=== PATIENT | male | born 1985 | race American Indian/Alaskan Native ===

== ENCOUNTER 2016-10-06 20:32 | Emergency (ER) | payer MEDICARE ==
[2016-10-06] MEDS ORDERED: TYLENOL PO ONE (20:54)
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
[2016-10-07] MEDS ORDERED: MOTRIN PO ONE (01:00)
[2016-10-07] MEDS ORDERED: BOOSTRIX IM ONE (01:00)
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
--- NOTE | 2016-10-07 02:14 | Cat Scan Report ---
FINAL REPORT PROCEDURE: CT LOWER EXTREMITY RT WO CON TECHNIQUE: Computerized axial tomography of the RIGHT ankle was performed without contrast. HISTORY: fractured ankle COMPARISON: No prior studies are available for comparison. FINDINGS: Bony structures including marrow spaces: There are cortical fractures of the posterior aspect of the distal tibia, the distal fibula and the medial malleolus. The talus and calcaneus are intact. Neurovascular structures: Normal. Soft tissues: There is medial soft tissue swelling. There is no mass or hematoma. Joint space: Normal. IMPRESSION: There are cortical fractures of the posterior aspect of the distal tibia, the distal fibula and the medial malleolus. There is medial soft tissue swelling. There is no mass or hematoma.
[2016-10-07 05:06] VITALS: BP 116/92
== END 2016-10-07 05:06 | disposition home or self-care (01) ==
LOC: ED 20:32
DX: S82.892A Other fracture of left lower leg, initial encounter for closed fracture (principal); S01.512A Laceration without foreign body of oral cavity, initial encounter; F31.9 Bipolar disorder, unspecified; F20.9 Schizophrenia, unspecified; F17.200 Nicotine dependence, unspecified, uncomplicated; F12.10 Cannabis abuse, uncomplicated; F14.10 Cocaine abuse, uncomplicated; Y08.89XA Assault by other specified means, initial encounter; Y93.9 Activity, unspecified; Y92.89 Other specified places as the place of occurrence of the external cause; Y99.9 Unspecified external cause status
CPT/HCPCS: 90471; 90715

== ENCOUNTER 2018-03-05 16:33 | Emergency (ER) | payer MEDICARE ==
[2018-03-05 16:40] VITALS: BP 156/67
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
== END 2018-03-05 17:35 | disposition left against medical advice (07) ==
LOC: ED 16:33
DX: F14.10 Cocaine abuse, uncomplicated (principal); Z53.21 Procedure and treatment not carried out due to patient leaving prior to being seen by health care provider

== ENCOUNTER 2018-04-27 07:36 | Emergency (ER) | payer MEDICARE ==
[2018-04-27 07:46] VITALS: BP 147/90
== END 2018-04-27 07:46 | disposition left against medical advice (07) ==
LOC: ED 07:36
DX: R51 Headache (principal); Z53.21 Procedure and treatment not carried out due to patient leaving prior to being seen by health care provider

== ENCOUNTER 2018-04-27 21:55 | Emergency (ER) | payer MEDICARE | END 2018-04-27 22:32 | disposition left against medical advice (07) | LOC: ED 21:55 | DX: R51 Headache (principal); Z53.21 Procedure and treatment not carried out due to patient leaving prior to being seen by health care provider ==

== ENCOUNTER 2020-05-27 01:12 | Emergency (ER) | payer SELFPAY ==
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
[2020-05-27 02:56] LABS: Basophils # (Auto) 0.1 K/mm3 (0.0-0.1); Basophils % (Auto) 1.4 % (0.0-1.8); Eosinophils # (Auto) 0.1 K/mm3 (0.0-0.4); Eosinophils % (Auto) 1.4 % (0.0-4.3); Hematocrit 39.8 % (35.5-45.6); Hemoglobin 13.1 gm/dl (11.8-15.2); Lymphocytes # (Auto) 2.8 K/mm3 (1.2-5.4); Lymphocytes % (Auto) 35.3 % (13.4-35.0); Mean Corpuscular HGB Conc 33 % (32-34); Mean Corpuscular Volume 95 fl (84-94); Monocytes # (Auto) 0.4 K/mm3 (0.0-0.8); Monocytes % (Auto) 5.1 % (0.0-7.3); Platelet Count 266 K/mm3 (140-440); Red Blood Count 4.21 M/mm3 (3.65-5.03); Red Cell Distribution Width 14.7 % (13.2-15.2)
[2020-05-27 03:10] LABS: BUN/Creatinine Ratio 9; Blood Urea Nitrogen 8 mg/dL (9-20); Calcium 9.3 mg/dL (8.4-10.2); Hemolysis Index 7
[2020-05-27 09:07] LABS: Bilirubin,Urine NEG (Negative); Blood,Urine NEG (Negative); Color,Urine Yellow (Yellow); Protein,Urine <15 mg/dL mg/dL (Negative); Urobilinogen,Urine < 2.0 mg/dL (<2.0)
[2020-05-27 09:12] LABS: Amphetamine Screen,Urine Negative; Benzodiazepines Screen,Urine Negative; Cocaine Screen,Urine Negative; Methadone Screen,Urine Negative; Opiate Screen,Urine Negative
[2020-05-27 09:24] LABS: Cannabinoid Screen,Urine Positive
[2020-05-27] MEDS ORDERED: HALOPERIDOL LACTATE 5 MG/1 ML INJ IM ONE (10:27)
[2020-05-27 20:36] VITALS: BP 116/78
== END 2020-05-27 23:15 ==
LOC: ED 01:12
DX: F23 Brief psychotic disorder (principal); F20.89 Other schizophrenia; F17.200 Nicotine dependence, unspecified, uncomplicated; F31.9 Bipolar disorder, unspecified; Z79.899 Other long term (current) drug therapy
CPT/HCPCS: 36415; 80048; 80307; 81001; 85025; 99284; J1630; 80320; G0480